=== PATIENT | male | born 1970 | race Caucasian/White ===

== ENCOUNTER 2023-11-07 19:25 | Outpatient (OUT) | payer OTHER, SELFPAY | END 2023-11-07 19:26 | disposition home or self-care (01) | LOC: SLEEP 19:44 | PROVIDERS: Family Provider Internal Medicine; PCP Internal Medicine; Visit Provider Internal Medicine | DX: G47.33 Obstructive sleep apnea (adult) (pediatric) (principal) | CPT/HCPCS: 95811 ==